=== PATIENT | male | born 1940 | race Caucasian/White ===

== ENCOUNTER 2020-01-26 16:28 | Emergency (ER) | payer MEDICARE, BC ==
[~2020-01-26] VITALS: Ht 175.3 cm; Wt 61.4 kg
[2020-01-26 16:55] VITALS: BP 132/78
[2020-01-26] MEDS ORDERED: TETanus/Pertussis (Acell)/Diphther VAC/PF (Tdap-Adult) 0.5ml syringe IMVAC ONE (20:10)
== END 2020-01-26 20:29 | disposition home or self-care (01) ==
LOC: ER 16:29
DX: S81.012A Laceration without foreign body, left knee, initial encounter (principal); Z88.2 Allergy status to sulfonamides; W45.8XXA Other foreign body or object entering through skin, initial encounter; Y93.89 Activity, other specified; Y92.89 Other specified places as the place of occurrence of the external cause; Y99.8 Other external cause status
CPT/HCPCS: 12002; 90471; 90715; 99283